=== PATIENT | male | born 1980 | race African-American/Black ===

== ENCOUNTER → 2019-10-19 | Outpatient (CLI) | payer OTHER ==
--- NOTE | 2019-10-19 18:11 | REP ---
Right hand series: Four views. History: History of fracture of the fourth metacarpal in 2018. Status post surgery. Reinjury 3 days ago. Pain and swelling overlying the fourth metacarpal. Findings: Four views right hand demonstrate a healing callus formation at a obliquely oriented fracture of the fourth metacarpal consistent with healing fracture. No acute fracture is appreciated. On oblique radiograph the fracture lucency persists. This raises a question of recurrent fracture versus possibly a delayed union. Bones, joints and soft tissues are otherwise unremarkable. Impression: Obliquely oriented fracture through the fourth metacarpal with slight overriding. Oblique radiograph suggests recurrent fracture versus delayed union. There is healing callus formation. Electronically Signed by Segun Urias MD 10/19/2019 06:02 P
== END ==
LOC: M LRY 17:35
PROVIDERS: ATTEND Physician Assistant
DX: S62.314A Displaced fracture of base of fourth metacarpal bone, right hand, initial encounter for closed fracture (principal); X58.XXXA Exposure to other specified factors, initial encounter
CPT/HCPCS: 29125; 73130; G0463